=== PATIENT | female | born 1950 | race Caucasian/White ===

== ENCOUNTER 2025-07-23 09:19 | Outpatient (CLI) | payer MEDICARE, SELFPAY ==
--- NOTE | 2025-07-23 09:29 | XR_ITS ---
FINAL REPORT TECHNIQUE: 4 views left knee CLINICAL HISTORY: left knee pain COMPARISON: None FINDINGS: LEFT KNEE: 4 images of the left knee were obtained. There is no evidence of fracture or dislocation. There is advanced medial compartment joint space narrowing, with subchondral sclerosis present in the medial compartment. Medial osteophytes are present. There is varus angulation with widening of the lateral compartment. A moderate joint effusion is present. IMPRESSION: Advanced changes of osteoarthritis, with particular narrowing of the medial compartment and varus angulation. Reviewed, Interpreted and Dictated by Edgar Omalley MD Transcribed by Angelique Engel Authenticated and . [facility]
== END 2025-07-23 23:59 | disposition home or self-care (01) ==
LOC: RAD 09:23
PROVIDERS: Visit Provider Orthopaedic Surgery
DX: M17.12 Unilateral primary osteoarthritis, left knee (principal)
CPT/HCPCS: 73562